=== PATIENT | male | born 1955 | race Caucasian/White ===

== ENCOUNTER 2021-12-30 00:10 | Emergency (ER) | payer OTHER ==
[2021-12-30 00:15] VITALS: RESP 18; TEMP 98.7
[2021-12-30] MEDS ORDERED: ORPHENADRINE 30 MG/ML 2 ML VIAL IM STA (01:54)
[2021-12-30] MEDS ORDERED: KETOROLAC 15 MG/ML 1 ML VIAL IM STA (01:54)
--- NOTE | 2021-12-30 02:01 | ED ---
General Adult HPI - General Chief complaint: Back Pain/Injury Stated complaint: Back & Rib Pain Time Seen by Provider: 12/30/21 01:41 Source: patient, RN notes reviewed Mode of arrival: ambulatory Limitations: no limitations - History of Present Illness Initial comments: 66-year-old male presents to the emergency department for evaluation of mid back pain that radiates to the right side. 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 States this discomfort has worsened over the past 2 days and has had no relief with rest, heat, and Tylenol. Patient states pain is worsened with repositioning upright and deep breathing. He denies any injury, trauma, fall, or motor vehicle accident. No loss of bowel or bladder control, saddle anesthesia, foot drop, or extremity weakness. Denies any further complaints at this time. - Related Data Previous Rx's Medication Instructions Recorded Cyclobenzaprine [Flexeril] 10 mg PO TID PRN #15 tab 12/30/21 Ibuprofen [Motrin] 600 mg PO Q8HR PRN #20 tab 12/30/21 lisinopriL [Zestril] 10 mg PO DAILY #14 tab 12/30/21 Allergies Allergy/AdvReac Type Severity Reaction Status Date / Time No Known Allergies Allergy Verified 12/30/21 00:15 Review of Systems ROS Statement: Those systems with pertinent positive or pertinent negative responses have been documented in the HPI. ROS Other: All systems not noted in ROS Statement are negative. Past Medical History Past Medical History: Hypertension History of Any Multi-Drug Resistant Organisms: None Reported Past Surgical History: No Surgical Hx Reported Past Psychological History: No Psychological Hx Reported Smoking Status: Former smoker Past Alcohol Use History: Occasional Past Drug Use History: None Reported General Exam Limitations: no limitations (Well-developed, well-nourished male in no acute distress. Initial temperature 98.7, pulse 78, respirations 18, blood pressure 205/105, pulse ox 96% on room air.) General appearance: alert, in no apparent distress Head exam: Present: atraumatic, normocephalic Eye exam: Present: normal appearance. Absent: scleral icterus, conjunctival injection Neck exam: Present: normal inspection, full ROM. Absent: tenderness, meningismus, lymphadenopathy Respiratory exam: Present: normal lung sounds bilaterally, chest wall tenderness (Right postero-lateral chest wall tenderness upon palpation along ribs 6&7), other (when asked to take a deep breath, patient flinched and was guarding the right side. no bony deformity palpable.). Absent: respiratory distress, wheezes, rales, rhonchi, stridor Cardiovascular Exam: Present: regular rate, normal rhythm, normal heart sounds. Absent: systolic murmur, diastolic murmur, rubs, gallop, clicks GI/Abdominal exam: Present: soft, normal bowel sounds. Absent: distended, tenderness, guarding, rebound, rigid Back exam: Present: normal inspection, muscle spasm (right sided thoracic back spasms). Absent: full ROM (ROM limited by pain), CVA tenderness (R), CVA tenderness (L), paraspinal tenderness, vertebral tenderness, rash noted Expanded Back exam: Negative Straight Leg Raising: Left, Right Neurological exam: Present: alert, oriented X3 Psychiatric exam: Present: normal affect Skin exam: Present: warm, dry, intact, normal color. Absent: rash Course Vital Signs 12/30/21 12/30/21 00:12 04:33 Temperature 98.7 F Pulse Rate 78 75 Respiratory 18 18 Rate Blood Pressure 205/105 198/99 O2 Sat by Pulse 96 98 Oximetry - Reevaluation(s) Reevaluation #1: 12/30/21 04:00 Prior to departure, patient is found to be fairly hypertensive. Discussed blood pressure reading. Patient states he used to take lisinopril but ran out and never followed up with his PCP for refill. Discussed the likelihood that elevated blood pressure is related to essential hypertension versus response to acute pain. He will be given an antihypertensive prior to departure and encour aged to follow up with his PCP as soon as possible for recheck. Medical Decision Making - Medical Decision Making This is a 66-year-old male with a past medical history of chronic back pain and hypertension who presents to the emergency department for evaluation of thoracic/right sided rib pain that occurred after spending several hours working on a vehicle and an crit position. Upon exam, patient does have tenderness upon palpation of the right posterolateral chest wall. He does have some discomfort associated with deep breathing. No crepitus or bony deformity. Pain worsens with movement and is spasmodic in nature. Chest/rib x-ray was negative. Patient given Toradol and Norflex with some improvement. In addition, patient is found to be hypertensive. He has been off of his medication for some time therefore will be given a dose of lisinopril per previous home medication regimen and instructed to follow up with his PCP for a recheck. He has prescribed lisinopril for blood pressure, Flexeril for muscle spasms, and Motrin for anti-inflammatory pain medication. Return parameters discussed in detail. Patient verbalizes understanding and agrees with this plan. Attending: Angel. - Radiology Data Radiology results: report reviewed, image reviewed Chest x-ray with right ribs was obtained. Report was reviewed in its entirety. Impression per Dr. Lopez is normal chest. Normal right ribs. Disposition Clinical Impression: Thoracic back pain, Spasm of back muscles, Hypertension Disposition: HOME SELF-CARE Condition: Stable Instructions (If sedation given, give patient instructions): Hypertension (ED), Muscle Spasm (ED), Back Pain (ED) Additional Instructions: Rest as needed. Maintain mobility with frequent ambulation and gentle stretching. Motrin is prescribed for pain. Flexeril is a muscle relaxer. You are also being prescribed Lisinopril for elevated blood pressure. Take this medication once daily. Stop at a pharmacy and check your blood pressure using an automatic cuff. Document these readings and take with you when your follow up with Dr. Douglas. Follow up with your PCP for a recheck on Sunday. Return to the emergency department with any new, worsening, or concerning symptoms. Prescriptions: Cyclobenzaprine [Flexeril] 10 mg PO TID PRN #15 tab PRN Reason: Muscle Spasm Ibuprofen [Motrin] 600 mg PO Q8HR PRN #20 tab PRN Reason: Pain lisinopriL [Zestril] 10 mg PO DAILY #14 tab Is patient prescribed a controlled substance at d/c from ED?: No Referrals: Obed Douglas DO [Primary Care Provider] - 1-2 days
--- NOTE | 2021-12-30 02:50 | XR ---
EXAMINATION TYPE: XR ribs RT w pa chest xray DATE OF EXAM: 12/30/2021 COMPARISON: NONE HISTORY: Chest pain TECHNIQUE: 5 views FINDINGS: Heart and mediastinum are normal. Lungs are clear of infiltrate. The right ribs appear inta ct. No pleural effusion or pneumothorax. Right shoulder appears intact. IMPRESSION: Normal chest. Normal right ribs.
[2021-12-30] MEDS ORDERED: lisinopriL 10 MG TAB PO STA (03:50)
[2021-12-30 04:38] VITALS: BP 198/99; PULSE 75
== END 2021-12-30 04:38 | disposition home or self-care (01) ==
LOC: EC 00:10
DX: M54.6 Pain in thoracic spine (principal); I10 Essential (primary) hypertension; M62.830 Muscle spasm of back; Z87.891 Personal history of nicotine dependence; Z79.899 Other long term (current) drug therapy; X50.0XXA Overexertion from strenuous movement or load, initial encounter
CPT/HCPCS: 71101; 99283; 96372 ×2; J2360; J1885